=== PATIENT | male | born 1950 | race Caucasian/White ===

== ENCOUNTER → 2023-12-14 15:47 | Outpatient (REF) | payer OTHER, SELFPAY | LOC: MRI 3T 15:47 | PROVIDERS: ATTENDING PHYSICIAN Physician Assistant Surgical; FAMILY PHYSICIAN Family Medicine | DX: M25.562 Pain in left knee (principal) | CPT/HCPCS: 73721 ==

== ENCOUNTER → 2024-07-14 12:24 | Day surgery (SDC) | payer OTHER, SELFPAY ==
[2024-07-14] VITALS (9 sets, daily range): BP systolic 117–171; BP diastolic 56–85; BMI 31.5
--- NOTE | 2024-07-14 08:19 | ED.GENMED ---
History of Present Illness
General
Chief Complaint: Abdominal Pain
Source: patient
Exam Limitations: none
Time Seen by Provider: 07/14/24 08:09
Nursing documentation reviewed up to this point in time: agreed with
History of Present Illness
History of Present Illness:
Patient with history of cholecystectomy in 2020, presents ED secondary to recurrent, intermittent right sided abdominal pain, associated with 1 vomiting episode yesterday. Denies fever or chills. Abdominal pain described as sharp, nonradiating,
without any alleviating or exacerbating factors. Denies trauma. Denies diarrhea. Denies back pain. Denies difficulty urination. Patient states that he has had history of kidney stones, but feels that his symptoms are more similar to when he had
his gallbladder removed. However, patient does state that he had 1 episode of hematuria 1 week ago, which now has resolved completely. Denies recent change in medications or diet.
Past History
Past History
ED Past Medical History: HTN
ED Past Surgical History: None
Social History
Tobacco: Non-smoker
Alcohol: Occasional
Personal:
Living: with family
Employment: Employed (Self-employed)
Family History
Family History: Other (Noncontributory)
Review of Systems
Review of Systems
Allergies reviewed?: Yes
All Other Systems: ROS reviewed and negative except as documented in HPI and ROS
Constitutional: Reports no symptoms; Denies fever
Respiratory: Reports no symptoms
Cardiac: Reports no symptoms
ABD/GI: Reports abdominal pain, nausea and vomiting; Denies diarrhea
: Reports bleeding; Denies flank pain
Musculoskeletal: Reports no symptoms
Skin: Reports no symptoms
Neurological: Reports no symptoms
Phy Exam
Physical Exam
Physical Exam:
Physical Exam
General: no apparent distress, not acutely ill. afebrile
Head: nc/at.eomi
Neck: supple. no meningeal signs.
Heart: s1/s2 regular rate and rhythm, no murmur. equal radial pulses.
Lungs: no acute respiratory distress. clear bilaterally
Abdomen: normal bowel sounds. not tender.
Neuro: alert and oriented. no focal neurological deficits
Skin: no rash
Psychiatric: well kept. interactive and cooperative
Extremities: no edema. no calf tenderness.
Course
Orders/Labs/Results
Orders:
Orders
07/14/24 08:18
US Abdomen Complete/Upper Urgent
Comment:
Reason For Exam: RUQ pain, s/p cholecystectomy
07/14/24 08:19
0.9% Sodium Chloride 500 ml [Nss] 500 ml IV BOLUS
07/14/24 08:23
Complete Blood Count/With Diff Urgent
Comprehensive Metabolic Panel Urgent
Lipase Urgent
Urinalysis Reflex To Culture Urgent
Date Specimen was Collected: 07/14/24
Time Specimen was Collected: 08:22
Urine Microscopic Reflex Cult Urgent
Urine Culture Urgent
MICHAEL Source: U
Specimen Description:
Date Specimen was Collected: 07/14/24
Time Specimen was Collected: 08:22
07/14/24 08:42
HYDROmorphone [Dilaudid] 0.5 mg IV NOW STA
Ondansetron Injectable [Zofran] 4 mg IV NOW STA
07/14/24 09:20
CT Abd/pel Without Iv Or Oral Urgent
Comment:
Reason For Exam: right flank pain w hematuria
07/14/24 11:23
HYDROmorphone [Dilaudid] 0.25 mg IV PACU-Q5MPRN PRN
HYDROmorphone [Dilaudid] 0.5 mg IV PACU-Q5MPRN PRN
Meperidine [Demerol] 12.5 mg IV PACU-Q5MPRN PRN
Ondansetron Injectable [Zofran] 4 mg IV PACU-ONCEPRN PRN
Prochlorperazine [Compazine] 5 mg IV PACU-ONCEPRN PRN
Notify MD As Directed
Notify physician if: for SDS patients with known or suspected sleep obstructive sleep apnea, monitor in the
PACU.
Notify MD for any apneic/desaturation episodes
O2 Therapy [RESP] Urgent
Titrate/Wean O2 to maintain O2 sat greater than (%): 92
Special Instructions: -Provide supplemental oxygen to achieve O2 sat of 92% or greater.
-After 15 min, may wean O2 and discontinue if patient is able to maintain O2 sat of 92%
or greater during recovery period.
If patient is a discharge home, without oxygen therapy, notify anestheiologist if
unable to maintain O2 SAT of 92% or greater on room air for MD clearance.
07/14/24 11:30
Normosol (Mult Electrolytes) [Normosol-R] 1,000 ml IV PER PROTOCOL
07/14/24 12:12
Fentanyl Citrate/Pf [Sublimaze] 100 mcg .ROUTE .STK-MED ONE
07/14/24 12:13
Midazolam HCl [Versed] 2 mg .ROUTE .STK-MED ONE
07/14/24 12:29
Phenylephrine HCl/0.9% NaCl [Kal-Synephrine] 1,000 mcg .ROUTE .STK-MED ONE
07/14/24 12:44
CeFAZolin SODIUM [Ancef] 2,000 mg .ROUTE .STK-MED ONE
Dexamethasone Sod Phosphate [Decadron] 20 mg .ROUTE .STK-MED ONE
Ondansetron Injectable [Zofran] 4 mg .ROUTE .STK-MED ONE
Phenylephrine HCl/0.9% NaCl [Kal-Synephrine] 1,000 mcg .ROUTE .STK-MED ONE
Rocuronium [place] [Rocuronium] 50 mg .ROUTE .STK-MED ONE
07/14/24 12:49
Lidocaine 2% [Lidocaine Uro-Jet 2%] 1 syringe .ROUTE .STK-MED ONE
07/14/24 12:55
Phenazopyridine HCl [Pyridium] 200 mg PO NOW STA
Tolterodine Extended Release [Detrol LA] 4 mg PO NOW STA
07/14/24 13:01
CR Abdomen - 1 View Routine
Reason For Exam: JACINTA, CYSTO, RT STENT PLACEMENT
RF Fluoroscopy, C-arm Routine
07/14/24 13:18
Phenazopyridine HCl [Pyridium] 200 mg .ROUTE .STK-MED ONE
Tolterodine Extended Release [Detrol LA] 4 mg .ROUTE .STK-MED ONE
Abnormal Lab Results
07/14/24
08:23
Absolute Neuts (auto) 7.8 H 10^3/uL
(1.4-6.5)
Absolute Lymphs (auto) 0.5 L 10^3/uL
(1.2-3.4)
Absolute Monos (auto) 0.7 H 10^3/uL
(0.1-0.6)
Neutrophils % 85.8 H %
(42.2-75.2)
Lymphocytes % 5.6 L %
(20.5-51.1)
BUN 25 H mg/dl
(9-20)
Creatinine 1.4 H mg/dL
(0.7-1.3)
Glucose 127 H mg/dl
(70-99)
Urine Ketones 2+ A
(Negative)
Ur Occult Blood Reflex 3+ A
(Negative)
Urine RBC 3-6 A /HPF
(0-2)
Urine Bacteria (Reflex) Many A
(Negative)
Urine Albumin (Reflex) 1+ A
(Neg - Trace)
07/14/24 08:23
07/14/24 08:23
Vital Signs
Initial and Last Documented VS:
Initial Vital Signs
Temp Pulse Resp BP Pulse Ox
98.3 F 74 18 171/82 97
07/14/24 07:44 07/14/24 07:44 07/14/24 07:44 07/14/24 07:44 07/14/24 07:44
Last Documented Vital Signs
Temp Pulse Resp BP Pulse Ox
98.6 F 77 15 146/71 99
07/14/24 13:05 07/14/24 13:45 07/14/24 13:45 07/14/24 13:45 07/14/24 13:45
MDM/Problems Addressed
MDM/Problems Addressed:
History, exam, and CT scan consistent with renal colic, secondary to large obstructing renal stone. Acute renal failure noted, likely secondary to obstructing stone.
Discussed with on-call urology, . Patient will be transferred to the OR for temporary ureteral stent placement. Afterwards, patient will be follow-up as an outpatient via urology.
*Critical Care Note
Total Time (30-74mins, 75-104mins- exclusive of procedures): Not Applicable
ED Attending Note
-
Portions of this chart may have been created with voice recognition software.� Occasional wrong word or��sound alike� substitutions may have occurred due to the inherent limitations of voice recognition software.
Discharge Plan
Departure
Patient Disposition: OR
Date of Disposition: 07/14/24
Time of Disposition: 11:03
Admit to: OR
Presentation/result/management discussed w/ accepting MD/DO:
Discharge Problem:
Renal colic on right side, Acute renal failure
Interventions
Interventions:
*Risk Screen - Suicide Last Done: 07/14/24 08:15
*General Assessment Last Done: 07/14/24 08:15
*Neglect/Abuse Screening Last Done: 07/14/24 08:15
*Nursing Disposition Last Done: 07/14/24 12:12
QQ-Bbnlyj-Rxzasrivxz Assessment Last Done: 07/14/24 08:15
Discharge Date and Time
Discharge Date/Time: 07/14/24 12:12
[2024-07-14] MEDS: NSS 500 IV (08:33)
[2024-07-14 08:39] LABS: % Basophils 0.3 % (0-2); % Immature Granulocytes 0.2 % (0-0.5); % Lymphocytes 5.6 % (20.5-51.1); % Monocytes 8.1 % (1.7-9.3); % Neutrophils 85.8 % (42.2-75.2); Absolute Lymphocytes 0.5 10^3/uL (1.2-3.4); Absolute Monocytes 0.7 10^3/uL (0.1-0.6); Absolute Neutrophils 7.8 10^3/uL (1.4-6.5); Hematocrit 40.8 % (39.0-52.0); Hemoglobin 14.9 g/dL (13.0-18.0); Mean Corp Hgb Conc. 36.5 g/dL (33.0-37.0); Mean Corpuscular Hgb 30.5 pg (27.0-31.0); Mean Corpuscular Volume 83.4 fL (80.0-94.0); Nucleated Red Blood Cells % 0 % (-); Platelet Count 221 10^3/uL (130-400); Red Blood Cell Count 4.89 10^6/uL (4.70-6.10); Red Cell Dist. Width 12.9 % (11.5-14.5); White Blood Cell Count 9.1 10^3/uL (4.8-10.8)
[2024-07-14 08:49] LABS: ALT (SGPT) 24 U/L (0-50); AST (SGOT) 28 U/L (17-59); Albumin 4.5 g/dl (3.5-5.0); Alkaline Phosphatase 56 U/L (38-126); Blood Urea Nitrogen 25 mg/dl (9-20); Calcium 9.8 mg/dl (8.4-10.2); Carbon Dioxide 23 mmol/L (22-30); Chloride 106 mmol/L (98-107); Glucose 127 mg/dl (70-99); Lipase 270 U/L (23-300); Potassium 4.1 mmol/L (3.5-5.1); Sodium 141 mmol/L (135-145); Total Bilirubin 1.2 mg/dl (0.2-1.3); Total Protein 6.7 g/dl (6.3-8.2)
[2024-07-14 08:52] LABS: Urine Albumin 1+ (Neg - Trace); Urine Bilirubin Negative (Negative); Urine Character Clear (Clear); Urine Color Yellow; Urine Glucose Negative (Negative); Urine Ketone 2+ (Negative); Urine Leukocyte Negative (Negative); Urine Nitrite Negative (Negative); Urine Occult Blood 3+ (Negative); Urine Specific Gravity 1.025 (<1.030); Urine Urobilinogen Negative (Neg - 1+)
[2024-07-14] MEDS: DILAUDID 0.5 MG IV (09:07)
[2024-07-14] MEDS: ZOFRAN 4 MG IV (09:07)
[2024-07-14 09:14] LABS: Urine Bacteria Many (Negative); Urine White Cell None Seen /HPF (0-5)
--- NOTE | 2024-07-14 12:12 | W.SUR.PREOP ---
Pre-Operative Surgical Note
-
I have examined this patient prior to the performance of the scheduled procedure.
The patient's condition is unchanged from the time of the current History and
Physical and the patient is able to undergo the scheduled procedure.
Dx:
JACINTA
Obstructive uropathy (serologic/radiographic)
Large obstructing right UPJ stone w/ hydronephrosis
Emesis
Cr 1.4 (baseline 1.0)
UA not grossly indicative of UTI
On Eliquis for afib (last dose this AM)
Reviewed risks, benefits, alternatives, and potential complications of cysto and stent insertion including but not limited to urosepsis, bleeding, ureteral/bladder injury, perforation, need for additional procedures/surgeries.
Given active anticoagulation, will pursue stent placement ONLY due to bleeding risk.
Plan:
- To OR for cysto and right stent insertion
- Surgical consent signed on chart
- IV Ancef 2g position classifier to OR
- Plan for d/c home from PACU if clinically stable
D/w patient.
D/w spouse and son (POA).
D/w Anesthesiologist.
[2024-07-14] MEDS: Pyridium 200 MG PO (13:36)
[2024-07-14] MEDS: DETROL LA 4 MG PO (13:36)
== END ==
LOC: EMR 07:40 → PACU 12:24
PROVIDERS: ATTENDING PHYSICIAN Surgery; EMERGENCY PHYSICIAN Emergency Medicine; FAMILY PHYSICIAN Family Medicine
DX: N13.2 Hydronephrosis with renal and ureteral calculous obstruction (principal); N17.9 Acute kidney failure, unspecified; Z87.442 Personal history of urinary calculi; Z90.49 Acquired absence of other specified parts of digestive tract; I48.91 Unspecified atrial fibrillation; Z79.01 Long term (current) use of anticoagulants; R11.15 Cyclical vomiting syndrome unrelated to migraine
CPT/HCPCS: 52332; 74018; 74176; 76000; 76700; 80053; 81003; 81015; 83690; 85025; 87086; 96361; 96374; 96375; 99285; A4300; C1769; C2617

== ENCOUNTER 2024-07-25 03:12 | Emergency (ER) | payer OTHER, SELFPAY ==
[2024-07-25] VITALS (7 sets, daily range): BP systolic 126–143; BP diastolic 67–77; PULSE 64–77; BMI 29.7
[2024-07-25 03:33] LABS: Glucose - Point of Care 114 mg/dl (70-99)
--- NOTE | 2024-07-25 03:59 | ED.GENMED ---
History of Present Illness
<DAMON Herrmann - Last Filed: 07/25/24 04:41>
General
Chief Complaint: Heart Rate Problem
Time Seen by Provider: 07/25/24 03:50
History of Present Illness
History of Present Illness:
Pt is a 74 y/o M with PMHx of HTN and HLD x15 yrs and migraines x10 years who presents today with complaints of palpitations x 1 hr ago while he was visiting his in the hospital. The pt stated that he was sitting in a recliner chair in his
's hospital room with his legs inclined and attempted to get up due to bilateral calf pain. When he stood up, staff noted that the patient was diaphoretic and he started to experience the palpitations, weakness, lightheadedness, and presyncopal
sensation. The patient also noted an episode of urinary incontinence when he stood up which has never happened before. The patient stated that at the time he also had 'tunnel vision' in his right eye which he has experienced before from his pmhx of
'ocular migraines'. The patient stated that overall his symptoms have improved but still feels a bit 'fuzzy'. He denies chest pain, headache, fever, and shortness of breath.
The pt has a pmhx of HTN x 15 yrs on Losartan, HLD and GERD which he deferred medical management for, and a prior episode of afib for which he is on Cardia XT for. The pt also has a history of retinal migraines x10 years. His last meal was at 6 pm.
Past History
<DAMON Herrmann - Last Filed: 07/25/24 04:41>
Past History
ED Past Medical History: GERD, HTN and Hypercholesterolemia
ED Past Surgical History: Cholecystectomy, Tonsilectomy (at 9 y/o) and Other (kidney stone removal, partial cornea replacement)
Social History
Tobacco: Non-smoker
Alcohol: Occasional
Drug: None
Personal:
Living: with family
Employment: Employed (Self-employed)
Family History
Family History: Other (Noncontributory)
Review of Systems
<DAMON Herrmann - Last Filed: 07/25/24 04:41>
Review of Systems
Allergies reviewed?: Yes
Constitutional: Reports no symptoms
EENT: Reports no symptoms
Respiratory: Reports no symptoms
Cardiac: Reports diaphoresis and palpitations
ABD/GI: Reports no symptoms
: Reports incontinence
Musculoskeletal: Reports no symptoms
Skin: Reports no symptoms
Neurological: Reports weakness
Endocrine: Reports no symptoms
Hematologic/Lymphatic: Reports no symptoms
Psychiatric: Reports no symptoms
Phy Exam
<DAMON Herrmann - Last Filed: 07/25/24 04:41>
General Physical Exam
General Presentation: well appearing and no apparent distress
General age: appears stated age
General Skin: dry and cool
General Habitus: normal
General Mental: alert
General Hydration: appears well hydrated
ENT Exam
ENT Exam: EOMI and neck supple
Eye Exam
Eye Exam: PERRL, EOMI, cornea clear, conjunctiva normal, visual acuity normal and visual silva normal
Cardiovascular Exam
Cardiovascular Exam: regular rate/rhythm and normal peripheral pulses
Pulmonary Exam
Pulmonary Exam: lungs clear, no respiratory distress, no rales, chest non tender, no crackles, no rhonchi, no stridor, no wheezing and no cough
Gastrointestinal Exam
Gastrointestinal Exam: normal bowel sounds, non tender, soft and non distended
Neurological Exam
Neurological Exam: alert, oriented x3, CN II-XII intact, no motor deficits, no sensory deficits and speech normal
Musculoskeletal Exam
Musculoskeletal Exam: full ROM and neuro vasc intact
Skin Exam
Skin Exam: normal color
Psychiatric Exam
Psychiatric Exam: normal mood/affect
Course
<DAMON Herrmann - Last Filed: 07/25/24 04:41>
Orders/Labs/Results
Orders:
Orders
07/25/24 03:13
EKG [Electrocardiogram (*1)] Urgent
Reason for Study: Chest Pain
EKG- Treatment ONCE
07/25/24 03:41
ECG [Electrocardiogram (*1)] Urgent
Reason for Study: Fatigue / Weakness
07/25/24 04:12
COVID-19 Antigen Urgent
Source: Nasal Swab
Complete Blood Count/With Diff Urgent
Comprehensive Metabolic Panel Urgent
Troponin I Urgent
07/25/24 04:29
Urinalysis Reflex To Culture Urgent
07/25/24 04:37
Orthostatic Vital Signs As Directed
Orthostatic VS Frequency: Now
07/25/24 05:07
0.9% Sodium Chloride 1000 ml [Nss] 1,000 ml IV BOLUS
07/25/24 06:14
Ambulate Patient-Treatment ONCE
Abnormal Lab Results
07/25/24 07/25/24
03:32 04:12
RBC 4.63 L 10^6/uL
(4.70-6.10)
MCH 31.1 H pg
(27.0-31.0)
Absolute Lymphs (auto) 0.9 L 10^3/uL
(1.2-3.4)
Lymphocytes % 15.3 L %
(20.5-51.1)
BUN 25 H mg/dl
(9-20)
Glucose 112 H mg/dl
(70-99)
POC Glucose 114 H mg/dl
(70-99)
07/25/24 04:12
07/25/24 04:12
Vital Signs
Initial and Last Documented VS:
Initial Vital Signs
Temp Pulse Resp BP Pulse Ox
98.8 F 59 18 138/68 98
07/25/24 03:23 07/25/24 03:23 07/25/24 03:23 07/25/24 03:23 07/25/24 03:23
Last Documented Vital Signs
Temp Pulse Resp BP Pulse Ox
98.8 F 61 22 142/67 96
07/25/24 03:23 07/25/24 05:38 07/25/24 05:30 07/25/24 05:38 07/25/24 05:38
<Woody Jose, DO - Last Filed: 07/25/24 06:22>
Orders/Labs/Results
Orders:
Orders
07/25/24 03:13
EKG [Electrocardiogram (*1)] Urgent
Reason for Study: Chest Pain
EKG- Treatment ONCE
07/25/24 03:41
ECG [Electrocardiogram (*1)] Urgent
Reason for Study: Fatigue / Weakness
07/25/24 04:12
COVID-19 Antigen Urgent
Source: Nasal Swab
Complete Blood Count/With Diff Urgent
Comprehensive Metabolic Panel Urgent
Troponin I Urgent
07/25/24 04:29
Urinalysis Reflex To Culture Urgent
07/25/24 04:37
Orthostatic Vital Signs As Directed
Orthostatic VS Frequency: Now
07/25/24 05:07
0.9% Sodium Chloride 1000 ml [Nss] 1,000 ml IV BOLUS
07/25/24 06:14
Ambulate Patient-Treatment ONCE
Abnormal Lab Results
07/25/24 07/25/24
03:32 04:12
RBC 4.63 L 10^6/uL
(4.70-6.10)
MCH 31.1 H pg
(27.0-31.0)
Absolute Lymphs (auto) 0.9 L 10^3/uL
(1.2-3.4)
Lymphocytes % 15.3 L %
(20.5-51.1)
BUN 25 H mg/dl
(9-20)
Glucose 112 H mg/dl
(70-99)
POC Glucose 114 H mg/dl
(70-99)
07/25/24 04:12
07/25/24 04:12
Vital Signs
Initial and Last Documented VS:
Initial Vital Signs
Temp Pulse Resp BP Pulse Ox
98.8 F 59 18 138/68 98
07/25/24 03:23 07/25/24 03:23 07/25/24 03:23 07/25/24 03:23 07/25/24 03:23
Last Documented Vital Signs
Temp Pulse Resp BP Pulse Ox
98.8 F 61 22 142/67 96
07/25/24 03:23 07/25/24 05:38 07/25/24 05:30 07/25/24 05:38 07/25/24 05:38
<DAMON Herrmann - Last Filed: 07/25/24 04:41>
MDM/Problems Addressed
Differential Diagnosis Includes:
Orthostatic hypotension
TIA
<DAMON Herrmann - Last Filed: 07/25/24 04:41>
*Critical Care Note
Total Time (30-74mins, 75-104mins- exclusive of procedures): Not Applicable
ED Attending Note
<DAMON Herrmann - Last Filed: 07/25/24 04:41>
-
Portions of this chart may have been created with voice recognition software.� Occasional wrong word or��sound alike� substitutions may have occurred due to the inherent limitations of voice recognition software.
<Woody Jose DO - Last Filed: 07/25/24 06:22>
ED Attending Note
Patient seen and examined by attending physician: Yes
ED Attending Note:
This a pleasant 74-year-old male who was in the hospital visiting his who is a patient. Nursing staff noted that he did not look well. Patient had initial complaints of chest pain. Patient reports tunnel vision in his right eye, and
palpitations. He states that he has a history of ocular migraines. He feels that the tunnel vision was very similar to previous ocular migraines. Patient states that he was incontinent of urine which is something that has never happened to him
before. Denies any current symptoms. Patient was seen in conjunction with the PA student. I have reviewed and agree with the history and treatment plan presented. On my independent physical exam, patient is awake, alert, and oriented x3, no
acute distress drinking water. Heart is regular rate and rhythm. Lungs are clear to auscultation bilateral without wheezes rales or rhonchi present. Abdomen soft nontender nondistended. He moves all 4 extremities. Walks with normal gait.
Vital signs are stable. Patient not hypoxic
Nursing note reviewed. I agree with nursing documentation up to this point in time.
Home Meds and allergies reviewed.
NUMBER AND COMPLEXITY OF PROBLEMS ADDRESSED AT THE ENCOUNTER
� Chronic conditions affecting care: A-fib, hypertension, hyperlipidemia, GERD
� Acute Exacerbation and/or Progression of Chronic Illness:
� Differential Diagnosis includes: Syncope, tumor, dehydration
AMOUNT AND/OR COMPLEXITY OF DATA TO BE REVIEWED AND ANALYZED
I performed an independent evaluation of the following and my interpretation is:
EKG: EKG shows normal sinus rhythm 57 consistent with sinus bradycardia. Normal intervals, left axis deviation. No evidence of acute ischemia present.
CT:
X-rays:
Ultrasound:
Laboratory Studies: BUN is 25, 6.0 white count
Other:
Review of other/old records:
Clinical information was obtained by an independent historian:
Prescriptions/Medications Considered but not given:
Further testing considered but not performed: Not applicable
RISK OF COMPLICATIONS AND/OR MORBIDITY OR MORTALITY OF PATIENT MANAGEMENT
Social determinants of health affecting care: Good Social Support
Discussion with other providers:
Escalation of care including admission/observation vs risk of discharge considered:
CRITICAL CARE NOTE: Not applicable
Total Time (exclusive of procedures):
Update:
Discharge Plan
Departure
Prescriptions:
No Action
diltiazem HCl 120 mg Capsule,Extended Release 24hr
120 mg PO DAILY Qty: 30 2RF
Eliquis 5 mg tablet
5 mg PO BID Qty: 60 2RF
losartan 50 mg tablet
50 mg PO DAILY
prednisolone acetate 1 % drops,suspension
1 drp RIGHT EYE MOWEFR
cholecalciferol (vitamin D3) 50 mcg (2,000 unit) Tablet
50 mcg PO DAILY
Aixa
1 tab PO DAILY
Referrals:
Guero Myers MD [Family Provider] -
Interventions
Interventions:
*Risk Screen - Suicide Last Done: 07/25/24 03:23
*General Assessment Last Done: 07/25/24 03:50
*Neglect/Abuse Screening Last Done: 07/25/24 03:23
ED- Fall Risk Assessment Last Done: 07/25/24 03:50
*ED COVID-19 Vaccine History Last Done: 07/25/24 03:50
ED- Cardiac Assessment Last Done: 07/25/24 03:50
ED- Pulmonary Assessment Last Done: 07/25/24 03:50
Discharge Date and Time
Print Language: PORTUGUESE
[2024-07-25 04:31] LABS: % Basophils 0.8 % (0-2); % Eosinophils 0.8 % (0-6); % Immature Granulocytes 0.3 % (0-0.5); % Lymphocytes 15.3 % (20.5-51.1); % Monocytes 8.5 % (1.7-9.3); % Neutrophils 74.3 % (42.2-75.2); Absolute Basophils 0.1 10^3/uL (0-0.2); Absolute Eosinophils 0.1 10^3/uL (0-0.7); Absolute Lymphocytes 0.9 10^3/uL (1.2-3.4); Absolute Monocytes 0.5 10^3/uL (0.1-0.6); Absolute Neutrophils 4.5 10^3/uL (1.4-6.5); Hematocrit 40.1 % (39.0-52.0); Hemoglobin 14.4 g/dL (13.0-18.0); Mean Corp Hgb Conc. 35.9 g/dL (33.0-37.0); Mean Corpuscular Hgb 31.1 pg (27.0-31.0); Mean Corpuscular Volume 86.6 fL (80.0-94.0); Mean Platelet Volume 10.2 fL (7.4-10.4); Nucleated Red Blood Cells % 0 % (-); Platelet Count 195 10^3/uL (130-400); Red Blood Cell Count 4.63 10^6/uL (4.70-6.10); Red Cell Dist. Width 12.9 % (11.5-14.5)
[2024-07-25 04:42] LABS: COVID-19 Antigen Negative (Negative)
[2024-07-25 04:59] LABS: ALT (SGPT) 19 U/L (0-50); AST (SGOT) 23 U/L (17-59); Albumin 4.4 g/dl (3.5-5.0); Alkaline Phosphatase 48 U/L (38-126); Blood Urea Nitrogen 25 mg/dl (9-20); Calcium 9.6 mg/dl (8.4-10.2); Carbon Dioxide 24 mmol/L (22-30); Chloride 101 mmol/L (98-107); Estimated Creatinine Clearance 63 ml/min; Glucose 112 mg/dl (70-99); Potassium 4.3 mmol/L (3.5-5.1); Sodium 140 mmol/L (135-145); Total Bilirubin 1.2 mg/dl (0.2-1.3); Total Protein 6.5 g/dl (6.3-8.2); eGFR > 60.00
[2024-07-25 05:14] LABS: Troponin I < 0.012 ng/ml
[2024-07-25] MEDS: NSS 1000 IV (05:25)
[2024-07-25 07:56] LABS: Urine Albumin Negative (Neg - Trace); Urine Bilirubin Negative (Negative); Urine Character Clear (Clear); Urine Color Straw; Urine Glucose Negative (Negative); Urine Ketone Negative (Negative); Urine Leukocyte Negative (Negative); Urine Nitrite Negative (Negative); Urine Occult Blood Negative (Negative); Urine Specific Gravity 1.005 (<1.030); Urine Urobilinogen Negative (Neg - 1+)
== END 2024-07-25 07:10 | disposition home or self-care (01) ==
LOC: EMR 03:12
PROVIDERS: EMERGENCY PHYSICIAN Student in an Organized Health Care Education/Training Program; FAMILY PHYSICIAN Family Medicine
DX: R55 Syncope and collapse (principal); R61 Generalized hyperhidrosis; R53.1 Weakness; R32 Unspecified urinary incontinence; R00.2 Palpitations; Z11.52 Encounter for screening for COVID-19; I10 Essential (primary) hypertension; E78.00 Pure hypercholesterolemia, unspecified; G43.909 Migraine, unspecified, not intractable, without status migrainosus; K21.9 Gastro-esophageal reflux disease without esophagitis; I48.91 Unspecified atrial fibrillation; Z79.899 Other long term (current) drug therapy; Z79.01 Long term (current) use of anticoagulants; Z87.442 Personal history of urinary calculi; Z90.49 Acquired absence of other specified parts of digestive tract
CPT/HCPCS: 99285; 96360; 96361; 70450; 80053; 81003; 82962; 84484; 85025; 87811; 93005